=== PATIENT | male | born 1990 | race Caucasian/White ===

== ENCOUNTER 2023-02-03 04:02 | Observation (INO) | payer OTHER ==
[2023-02-03] MEDS ORDERED: Acetaminophen 325 MG TAB PO PRN (08:31)
[2023-02-03] MEDS ORDERED: Ondansetron PF 4 MG/2 ML Vial IVP PRN (08:31)
[2023-02-03] MEDS ORDERED: Nitroglycerin 0.4 MG TAB (25 Tab Bottle) SL PRN (08:34)
[2023-02-03] MEDS ORDERED: Losartan Potassium 50 MG TAB PO SCH (09:00)
[2023-02-03] MEDS ORDERED: Hydrochlorothiazide 25 MG TAB PO SCH (09:00)
[2023-02-03] MEDS ORDERED: Aspirin 81 mg Enteric Coated Tablet PO SCH (09:00)
[2023-02-03] MEDS ORDERED: Metoprolol Tartrate 25 MG TAB PO SCH (09:00)
[2023-02-03 09:32] LABS: Troponin I Less than 0.010 ng/mL (< 0.028)
[2023-02-03 10:38] VITALS: BMI 48.0
[2023-02-03 12:47] LABS: Troponin I Less than 0.010 ng/mL (< 0.028)
[2023-02-03 13:53] VITALS: BP 108/62; TEMP 98.4
[2023-02-03] MEDS ORDERED: Atorvastatin Calcium 40 MG TAB PO SCH (21:00)
== END 2023-02-03 14:40 | disposition short-term general hospital (02) ==
LOC: CSHTELE 06:29
PROVIDERS: ADMIT Student in an Organized Health Care Education/Training Program; ATTEND Internal Medicine
DX: R07.89 Other chest pain (principal); E66.01 Morbid (severe) obesity due to excess calories; I10 Essential (primary) hypertension; E78.5 Hyperlipidemia, unspecified; Z90.49 Acquired absence of other specified parts of digestive tract; Z90.89 Acquired absence of other organs; Z98.890 Other specified postprocedural states; F17.210 Nicotine dependence, cigarettes, uncomplicated; Z79.899 Other long term (current) drug therapy
CPT/HCPCS: 36415; 96372; G0378; J1650